=== PATIENT | female | born 1935 | race African-American/Black ===

== ENCOUNTER 2018-04-13 04:43 | Inpatient (IN) ==
[2018-04-13] MEDS ORDERED: SODIUM CHLORIDE 0.9% 500 ML IV STA (05:03)
[2018-04-13] MEDS ORDERED: FUROSEMIDE 40 MG/4 ML VIAL IV STA (05:13)
[2018-04-13 05:27] LABS: Albumin 2.5 G/DL (3.4-5.0); Calcium 8.7 MG/DL (8.5-10.1); Osmolality,Calculated 283.7 MOS/KG (273-304); Potassium 3.5 MMOL/L (3.5-5.1); Total Protein 8.4 G/DL (6.4-8.3)
[2018-04-13 05:40] LABS: Basophils # 0.1 10*3/uL (0.0-0.2); Basophils % 0.5 % (0.0-0.8); Eosinophils # 0.2 10*3/uL (0.0-0.87); Eosinophils % 2.2 % (0.00-10.9); Hematocrit 36.3 VOL% (35.7-47.0); Hemoglobin 11.9 GM/DL (12.0-16.0); Immature Granulocytes % 0.8 %; Immature Granulocytes Absolute 0.08 #; Lymphocytes # 0.9 10*3/uL (1.4-4.0); Lymphocytes % 9.6 % (21.3-54.2); Mean Corpuscular HGB Conc 32.8 GM/DL (32-36); Mean Corpuscular Hemoglobin 30 PG (27-34); Mean Corpuscular Volume 90.3 FL (87-102); Mean Platelet Volume 9.8 FL (9.6-12.0); Monocytes % 10.8 % (1.7-12.7); Neutrophils # 7.2 10*3/uL (1.4-7.4); Neutrophils % 76.1 % (38.7-73.9); Platelet Count 332 T/CUMM (130-400); Red Blood Count 4.02 MC/CUMM (3.8-5.5); Red Cell Distribution Width 13.6 % (9.3-17.3); White Blood Count 9.5 T/CUMM (4-12)
[2018-04-13 05:42] LABS: INR 1.1; PT Patient Result 11.2 SECS
[2018-04-13 05:48] LABS: Allen Test Positive
[2018-04-13 05:49] LABS: ABG Base Excess -3.1 MMOL/L (-2.5-2.5); ABG HCO3 17.8 MMOL/L (20-26); ABG Oxygen Saturation 90.6 % (95-100); ABG PCO2 21.8 MM HG (35-48); ABG PH 7.531 (7.35-7.45); ABG PO2 60.5 MM HG (80-95); ABG TCO2 18.5 MMOL/L (23-27)
[2018-04-13] MEDS ORDERED: AMIODARONE INJ 150 MG in DEXTROSE 5% 100 ML IV ONE ×2 (05:56→07:25)
[2018-04-13] MEDS ORDERED: AMIODARONE 150 MG/3 ML VIAL ONE (05:56)
[2018-04-13] MEDS ORDERED: AMIODARONE 450 MG/9 ML VIAL IV ONE (06:11)
[2018-04-13] MEDS: AMIODARONE INJ 450 MG in DEXTROSE 5% 241 ML IV SCH (06:17)
[2018-04-13 07:18] LABS: Apearance,Urine Slightly Hazy (Clear); Bacteria,Urine Occasional /HPF (Few); Bilirubin,Urine Negative (Negative); Blood, Urine Moderate mg/dL (Negative); Glucose,Urine (UA) Negative (Negative); Hyaline Casts,Urine 16 /LPF (0-3); Ketones,Urine Negative (Negative); Mucus,Urine Few /LPF (Occasional); Nitrite,Urine Negative (Negative); Protein,Urine Negative; RBC,Urine 10 /HPF (0-4); Squamous Epithelial Cell,Urine Occasional /HPF (0-10); Urine Color Yellow (Yellow); Urine Specific Gravity 1.008 (1.001-1.035); WBC,Urine 1 /HPF (0-6)
[2018-04-13] MEDS ORDERED: traZODone 50 MG TABLET PO PRN (08:27)
[2018-04-13] MEDS ORDERED: MAGNESIUM HYDROXIDE SUSP 30 ML UDCUP PO PRN (08:28)
[2018-04-13] MEDS ORDERED: ETOMIDATE 20 MG/10 ML VIAL IV ONE (08:38)
[2018-04-13] MEDS ORDERED: ROCURONIUM 100 MG/10 ML VIAL IV ONE (08:38)
[2018-04-13] MEDS ORDERED: ROSUVASTATIN 10 MG TABLET PO SCH (09:00)
[2018-04-13] MEDS ORDERED: AMIODARONE 200 MG TABLET PO SCH (09:00)
[2018-04-13] MEDS ORDERED: CARVEDILOL 12.5 MG TABLET PO SCH (09:00)
[2018-04-13] MEDS ORDERED: POTASSIUM CHLORIDE RIDER 10 MEQ in PREMIX 1 EACH IV ONE (09:11)
[2018-04-13 09:12] LABS: ABG Base Excess -5.1 MMOL/L (-2.5-2.5); ABG HCO3 20.2 MMOL/L (20-26); ABG Oxygen Saturation 94.9 % (95-100); ABG PCO2 34.2 MM HG (35-48); ABG PH 7.365 (7.35-7.45); ABG PO2 86.1 MM HG (80-95); ABG TCO2 17.4 MMOL/L (23-27)
[2018-04-13] MEDS ORDERED: MAGNESIUM SULF RIDER 2 GM in PREMIX 1 EACH IV STA (09:12)
[2018-04-13] MEDS ORDERED: PROPOFOL 1,000 MG/100 ML BOTTLE IV ONE (09:28)
[2018-04-13] MEDS: LIDOCAINE DRIP 2,000 MG/250 ML PREMIX IV SCH (09:52)
[2018-04-13] MEDS: PROPOFOL 1,000 MG/100 ML BOTTLE IV SCH ×2 (12:30→20:00)
[2018-04-13] MEDS: NOREPINEPHRINE 8 MG in SODIUM CHLORIDE 0.9% 242 ML IV PRN (13:01)
[2018-04-13 14:16] LABS: Calcium 8.1 MG/DL (8.5-10.1); Osmolality,Calculated 281.8 MOS/KG (273-304); Potassium 3.9 MMOL/L (3.5-5.1)
[2018-04-13] MEDS: FUROSEMIDE 40 MG/4 ML VIAL IV SCH (16:27)
[2018-04-13] MEDS: ENOXAPARIN 40 MG/0.4 ML SYRINGE SUBCUT SCH (16:47)
[2018-04-14 03:21] LABS: ABG Base Excess -1.3 MMOL/L (-2.5-2.5); ABG HCO3 20.1 MMOL/L (20-26); ABG Oxygen Saturation 98.5 % (95-100); ABG PCO2 24.6 MM HG (35-48); ABG PO2 136.8 MM HG (80-95); ABG TCO2 20.8 MMOL/L (23-27); Allen Test Positive; Pt O2 Delivery Device Ventilator
[2018-04-14 04:06] LABS: Basophils # 0.1 10*3/uL (0.0-0.2); Basophils % 0.4 % (0.0-0.8); Eosinophils # 0.1 10*3/uL (0.0-0.87); Eosinophils % 0.9 % (0.00-10.9); Hematocrit 34.6 VOL% (35.7-47.0); Hemoglobin 11.6 GM/DL (12.0-16.0); Immature Granulocytes % 0.6 %; Immature Granulocytes Absolute 0.08 #; Lymphocytes # 1.5 10*3/uL (1.4-4.0); Lymphocytes % 11.3 % (21.3-54.2); Mean Corpuscular HGB Conc 33.5 GM/DL (32-36); Mean Corpuscular Hemoglobin 29 PG (27-34); Mean Corpuscular Volume 87.2 FL (87-102); Mean Platelet Volume 9.7 FL (9.6-12.0); Monocytes # 1.4 10*3/uL (0.11-0.8); Monocytes % 10.1 % (1.7-12.7); Neutrophils # 10.3 10*3/uL (1.4-7.4); Neutrophils % 76.7 % (38.7-73.9); Platelet Count 302 T/CUMM (130-400); Red Blood Count 3.97 MC/CUMM (3.8-5.5); Red Cell Distribution Width 13.8 % (9.3-17.3); White Blood Count 13.4 T/CUMM (4-12)
[2018-04-14 04:55] LABS: Troponin I 0.175 NG/ML (0.00-0.045)
[2018-04-14] MEDS: AMIODARONE INJ 450 MG in DEXTROSE 5% 241 ML IV SCH ×4 (05:08→12:32)
[2018-04-14 05:40] LABS: Calcium 8.2 MG/DL (8.5-10.1); Osmolality,Calculated 280.5 MOS/KG (273-304); Potassium 2.8 MMOL/L (3.5-5.1)
[2018-04-14 05:50] LABS: Albumin 2.3 G/DL (3.4-5.0); Bilirubin,Direct 0.57 MG/DL (0.0-0.20); Bilirubin,Indirect 0.8 MG/DL (0.0-1.0); Bilirubin,Total 1.4 MG/DL (0.2-1.0); Total Protein 7.7 G/DL (6.4-8.3)
[2018-04-14] MEDS: FUROSEMIDE 40 MG/4 ML VIAL IV SCH ×2 (08:08→16:32)
[2018-04-14] MEDS: ENOXAPARIN 40 MG/0.4 ML SYRINGE SUBCUT SCH (08:08)
[2018-04-14] MEDS: POTASSIUM CHLORIDE RIDER 10 MEQ in PREMIX 1 EACH IV PRN (08:09)
[2018-04-14] MEDS ORDERED: MAGNESIUM SULF RIDER 2 GM in PREMIX 1 EACH IV ONE (08:14)
[2018-04-14] MEDS: NOREPINEPHRINE 8 MG in SODIUM CHLORIDE 0.9% 242 ML IV PRN (09:11)
[2018-04-14] MEDS: POTASSIUM CHLORIDE 20 MEQ/15 ML UDCUP PER TUBE SCH ×4 (09:11→20:12)
[2018-04-14 09:40] LABS: Albumin (SPE) 3.2 G/DL (3.2-5.3); Albumin (SPE) Rel % 38.4 %; Alpha 1 (SPE) 0.4 G/DL (0.1-0.4); Alpha 1 (SPE) Rel % 5.1 %; Alpha 2 (SPE) 1.1 G/DL (0.4-1.0); Alpha 2 (SPE) Rel % 13.2 %; Beta (SPE) 0.8 G/DL (0.5-1.1); Beta (SPE) Rel % 9.8 %; Gamma (SPE) 2.8 G/DL (0.7-1.7); Gamma (SPE) Rel % 33.5 %; Total Protein (Chem) 8.4 G/DL (6.4-8.3)
[2018-04-14] MEDS: LIDOCAINE DRIP 2,000 MG/250 ML PREMIX IV SCH ×2 (11:07→19:26)
[2018-04-14] MEDS: PROPOFOL 1,000 MG/100 ML BOTTLE IV SCH (15:36)
[2018-04-14] MEDS ORDERED: ONDANSETRON 4 MG/2 ML VIAL IV PRN (19:36)
[2018-04-14] MEDS ORDERED: ONDANSETRON 4 MG/2 ML VIAL ONE (19:37)
[2018-04-14] MEDS: AMIODARONE 200 MG TABLET PO SCH (20:12)
[2018-04-14] MEDS: MEXILETINE 200 MG CAPSULE PO SCH (22:27)
[2018-04-15] MEDS: AMIODARONE INJ 450 MG in DEXTROSE 5% 241 ML IV SCH ×2 (03:13→04:02)
[2018-04-15 03:45] LABS: Allen Test Positive; Pt O2 Delivery Device Ventilator
[2018-04-15 03:47] LABS: ABG Base Excess -1.4 MMOL/L (-2.5-2.5); ABG HCO3 21.1 MMOL/L (20-26); ABG Oxygen Saturation 98.4 % (95-100); ABG PCO2 29.9 MM HG (35-48); ABG PH 7.467 (7.35-7.45); ABG PO2 113.2 MM HG (80-95)
[2018-04-15 05:52] LABS: Calcium 8.4 MG/DL (8.5-10.1); Osmolality,Calculated 281.7 MOS/KG (273-304); Potassium 3.9 MMOL/L (3.5-5.1)
[2018-04-15] MEDS: MEXILETINE 200 MG CAPSULE PO SCH ×3 (06:10→21:26)
[2018-04-15] MEDS: POTASSIUM CHLORIDE RIDER 10 MEQ in PREMIX 1 EACH IV PRN ×2 (06:17→07:17)
[2018-04-15 06:49] LABS: Basophils % 0.2 % (0.0-0.8); Eosinophils # 0.3 10*3/uL (0.0-0.87); Eosinophils % 1.8 % (0.00-10.9); Hematocrit 34.3 VOL% (35.7-47.0); Hemoglobin 11.3 GM/DL (12.0-16.0); Immature Granulocytes % 0.7 %; Immature Granulocytes Absolute 0.11 #; Lymphocytes # 1.2 10*3/uL (1.4-4.0); Lymphocytes % 7.9 % (21.3-54.2); Mean Corpuscular HGB Conc 32.9 GM/DL (32-36); Mean Corpuscular Hemoglobin 29 PG (27-34); Mean Corpuscular Volume 89.3 FL (87-102); Mean Platelet Volume 9.4 FL (9.6-12.0); Monocytes # 1.5 10*3/uL (0.11-0.8); Neutrophils # 12.1 10*3/uL (1.4-7.4); Neutrophils % 79.4 % (38.7-73.9); Platelet Count 281 T/CUMM (130-400); Red Blood Count 3.84 MC/CUMM (3.8-5.5); Red Cell Distribution Width 14.1 % (9.3-17.3); White Blood Count 15.2 T/CUMM (4-12)
[2018-04-15] MEDS: FUROSEMIDE 40 MG/4 ML VIAL IV SCH ×2 (07:47→16:08)
[2018-04-15] MEDS: AMIODARONE 200 MG TABLET PO SCH ×2 (08:00→21:26)
[2018-04-15] MEDS: ENOXAPARIN 40 MG/0.4 ML SYRINGE SUBCUT SCH (08:00)
[2018-04-15] MEDS: PROPOFOL 1,000 MG/100 ML BOTTLE IV SCH (11:26)
[2018-04-15] MEDS: LIDOCAINE DRIP 2,000 MG/250 ML PREMIX IV SCH (11:50)
[2018-04-15] MEDS: NOREPINEPHRINE 8 MG in SODIUM CHLORIDE 0.9% 242 ML IV PRN (13:37)
[2018-04-15] MEDS: MEROPENEM 1,000 MG in SYRINGE 1 EACH IV SCH (18:20)
[2018-04-15] MEDS: SODIUM CHLORIDE 0.9% 1,000 ML IV SCH (21:30)
[2018-04-16] MEDS: MEROPENEM 1,000 MG in SYRINGE 1 EACH IV SCH ×3 (01:35→18:30)
[2018-04-16 04:10] LABS: ABG Base Excess 1.1 MMOL/L (-2.5-2.5); ABG HCO3 23.9 MMOL/L (20-26); ABG Oxygen Saturation 97.6 % (95-100); ABG PH 7.491 (7.35-7.45); ABG TCO2 24.9 MMOL/L (23-27); Allen Test Positive; Pt O2 Delivery Device Ventilator
[2018-04-16 04:23] LABS: Basophils # 0.1 10*3/uL (0.0-0.2); Basophils % 0.3 % (0.0-0.8); Eosinophils # 0.3 10*3/uL (0.0-0.87); Eosinophils % 2.1 % (0.00-10.9); Hematocrit 35.5 VOL% (35.7-47.0); Hemoglobin 11.3 GM/DL (12.0-16.0); Immature Granulocytes % 0.9 %; Immature Granulocytes Absolute 0.15 #; Lymphocytes # 1.3 10*3/uL (1.4-4.0); Lymphocytes % 8.2 % (21.3-54.2); Mean Corpuscular HGB Conc 31.8 GM/DL (32-36); Mean Corpuscular Hemoglobin 29 PG (27-34); Mean Corpuscular Volume 91.5 FL (87-102); Mean Platelet Volume 9.8 FL (9.6-12.0); Monocytes # 1.6 10*3/uL (0.11-0.8); Monocytes % 10.2 % (1.7-12.7); Neutrophils # 12.4 10*3/uL (1.4-7.4); Neutrophils % 78.3 % (38.7-73.9); Platelet Count 279 T/CUMM (130-400); Red Blood Count 3.88 MC/CUMM (3.8-5.5); Red Cell Distribution Width 13.9 % (9.3-17.3); White Blood Count 15.8 T/CUMM (4-12)
[2018-04-16 04:47] LABS: Calcium 8.5 MG/DL (8.5-10.1); Osmolality,Calculated 281.5 MOS/KG (273-304)
[2018-04-16 04:58] LABS: Calcium 8.8 MG/DL (8.5-10.1); Osmolality,Calculated 280.7 MOS/KG (273-304); Potassium 3.9 MMOL/L (3.5-5.1)
[2018-04-16] MEDS: MEXILETINE 200 MG CAPSULE PO SCH ×3 (06:30→21:01)
[2018-04-16] MEDS: PROPOFOL 1,000 MG/100 ML BOTTLE IV SCH ×2 (07:02→12:14)
[2018-04-16 08:55] LABS: ABG HCO3 25.3 MMOL/L (20-26); ABG Oxygen Saturation 97.7 % (95-100); ABG PCO2 34.9 MM HG (35-48); ABG PH 7.455 (7.35-7.45); ABG TCO2 21.7 MMOL/L (23-27); Pt O2 Delivery Device Ventilator
[2018-04-16] MEDS: ENOXAPARIN 40 MG/0.4 ML SYRINGE SUBCUT SCH (08:56)
[2018-04-16] MEDS: AMIODARONE 200 MG TABLET PO SCH ×2 (08:56→21:01)
[2018-04-16] MEDS: FUROSEMIDE 40 MG/4 ML VIAL IV SCH ×2 (08:56→14:54)
[2018-04-16] MEDS ORDERED: VANCOMYCIN INJ 500 MG in SODIUM CHLORIDE 0.9% 100 ML IV ONE (09:00)
[2018-04-16] MEDS ORDERED: DIGOXIN 0.5 MG/2 ML AMP IV ONE (15:33)
[2018-04-16] MEDS ORDERED: AMIODARONE INJ 150 MG in DEXTROSE 5% 100 ML IV ONE (16:46)
[2018-04-16] MEDS: SODIUM CHLORIDE 0.9% 1,000 ML IV SCH (17:17)
[2018-04-17] MEDS: MEROPENEM 1,000 MG in SYRINGE 1 EACH IV SCH ×3 (02:48→17:32)
[2018-04-17 04:57] LABS: Basophils % 0.3 % (0.0-0.8); Eosinophils # 0.4 10*3/uL (0.0-0.87); Eosinophils % 3.7 % (0.00-10.9); Hematocrit 31.9 VOL% (35.7-47.0); Hemoglobin 10.6 GM/DL (12.0-16.0); Immature Granulocytes % 0.9 %; Immature Granulocytes Absolute 0.09 #; Lymphocytes # 1.2 10*3/uL (1.4-4.0); Lymphocytes % 11.1 % (21.3-54.2); Mean Corpuscular HGB Conc 33.2 GM/DL (32-36); Mean Corpuscular Hemoglobin 30 PG (27-34); Mean Corpuscular Volume 89.6 FL (87-102); Mean Platelet Volume 9.8 FL (9.6-12.0); Monocytes # 1.2 10*3/uL (0.11-0.8); Monocytes % 11.8 % (1.7-12.7); Neutrophils # 7.6 10*3/uL (1.4-7.4); Neutrophils % 72.2 % (38.7-73.9); Platelet Count 236 T/CUMM (130-400); Red Blood Count 3.56 MC/CUMM (3.8-5.5); Red Cell Distribution Width 13.9 % (9.3-17.3); White Blood Count 10.6 T/CUMM (4-12)
[2018-04-17 05:22] LABS: Calcium 8.7 MG/DL (8.5-10.1); Osmolality,Calculated 285.3 MOS/KG (273-304); Potassium 3.5 MMOL/L (3.5-5.1)
[2018-04-17] MEDS: MEXILETINE 200 MG CAPSULE PO SCH ×3 (05:37→22:55)
[2018-04-17] MEDS ORDERED: PHENOL 1.4% THROAT SPRAY 177 ML BOTTLE PO PRN (06:56)
[2018-04-17] MEDS: POTASSIUM CHLORIDE 10 MEQ TABLET PO SCH ×2 (09:37→20:34)
[2018-04-17] MEDS: FUROSEMIDE 40 MG/4 ML VIAL IV SCH ×2 (09:37→15:30)
[2018-04-17] MEDS: ENOXAPARIN 40 MG/0.4 ML SYRINGE SUBCUT SCH (09:37)
[2018-04-17] MEDS: AMIODARONE 200 MG TABLET PO SCH ×2 (09:38→20:34)
[2018-04-17] MEDS: PROPOFOL 1,000 MG/100 ML BOTTLE IV SCH (10:01)
[2018-04-17] MEDS: SODIUM CHLORIDE 0.9% 1,000 ML IV SCH ×2 (17:26→22:20)
[2018-04-18] MEDS ORDERED: ALUMINUM/MAGNES/SIMETH MAX STR 30 ML UDCUP PO PRN (00:38)
[2018-04-18] MEDS: MEROPENEM 1,000 MG in SYRINGE 1 EACH IV SCH ×3 (01:30→16:47)
[2018-04-18 04:19] LABS: Basophils % 0.4 % (0.0-0.8); Eosinophils # 0.4 10*3/uL (0.0-0.87); Eosinophils % 4.2 % (0.00-10.9); Hematocrit 31.5 VOL% (35.7-47.0); Hemoglobin 10.3 GM/DL (12.0-16.0); Immature Granulocytes % 1.2 %; Immature Granulocytes Absolute 0.13 #; Lymphocytes # 1.1 10*3/uL (1.4-4.0); Lymphocytes % 10.7 % (21.3-54.2); Mean Corpuscular HGB Conc 32.7 GM/DL (32-36); Mean Corpuscular Hemoglobin 29 PG (27-34); Mean Corpuscular Volume 89.7 FL (87-102); Mean Platelet Volume 9.8 FL (9.6-12.0); Monocytes # 1.1 10*3/uL (0.11-0.8); Monocytes % 10.8 % (1.7-12.7); Neutrophils # 7.6 10*3/uL (1.4-7.4); Neutrophils % 72.7 % (38.7-73.9); Platelet Count 234 T/CUMM (130-400); Red Blood Count 3.51 MC/CUMM (3.8-5.5); Red Cell Distribution Width 14.1 % (9.3-17.3); White Blood Count 10.4 T/CUMM (4-12)
[2018-04-18 05:00] LABS: Bilirubin,Direct 0.3 MG/DL (0.0-0.20); Bilirubin,Indirect 0.4 MG/DL (0.0-1.0); Bilirubin,Total 0.7 MG/DL (0.2-1.0); Calcium 8.6 MG/DL (8.5-10.1); Osmolality,Calculated 282.5 MOS/KG (273-304); Potassium 3.7 MMOL/L (3.5-5.1); Total Protein 7.2 G/DL (6.4-8.3)
[2018-04-18] MEDS: MEXILETINE 200 MG CAPSULE PO SCH ×3 (06:50→21:54)
[2018-04-18] MEDS: FUROSEMIDE 40 MG/4 ML VIAL IV SCH ×2 (08:13→16:43)
[2018-04-18] MEDS: ENOXAPARIN 40 MG/0.4 ML SYRINGE SUBCUT SCH (08:13)
[2018-04-18] MEDS: POTASSIUM CHLORIDE 10 MEQ TABLET PO SCH ×2 (08:30→20:38)
[2018-04-18] MEDS: AMIODARONE 200 MG TABLET PO SCH ×2 (08:31→20:38)
[2018-04-18] MEDS: SODIUM CHLORIDE 0.9% 1,000 ML IV SCH (18:28)
[2018-04-19] MEDS: MEROPENEM 1,000 MG in SYRINGE 1 EACH IV SCH ×4 (00:59→16:57)
[2018-04-19] MEDS: MEXILETINE 200 MG CAPSULE PO SCH ×3 (05:46→22:08)
[2018-04-19 06:36] LABS: Basophils # 0.1 10*3/uL (0.0-0.2); Basophils % 0.4 % (0.0-0.8); Eosinophils # 0.4 10*3/uL (0.0-0.87); Eosinophils % 3.2 % (0.00-10.9); Hematocrit 32.4 VOL% (35.7-47.0); Hemoglobin 10.4 GM/DL (12.0-16.0); Immature Granulocytes % 2.1 %; Immature Granulocytes Absolute 0.25 #; Lymphocytes # 1.3 10*3/uL (1.4-4.0); Lymphocytes % 10.8 % (21.3-54.2); Mean Corpuscular HGB Conc 32.1 GM/DL (32-36); Mean Corpuscular Hemoglobin 30 PG (27-34); Mean Corpuscular Volume 92.3 FL (87-102); Monocytes # 1.4 10*3/uL (0.11-0.8); Monocytes % 11.3 % (1.7-12.7); Neutrophils # 8.7 10*3/uL (1.4-7.4); Neutrophils % 72.2 % (38.7-73.9); Platelet Count 264 T/CUMM (130-400); Red Blood Count 3.51 MC/CUMM (3.8-5.5)
[2018-04-19 06:46] LABS: Calcium 8.8 MG/DL (8.5-10.1); Osmolality,Calculated 279.7 MOS/KG (273-304); Potassium 3.8 MMOL/L (3.5-5.1)
[2018-04-19] MEDS: FUROSEMIDE 40 MG/4 ML VIAL IV SCH ×3 (08:04→17:37)
[2018-04-19] MEDS: ENOXAPARIN 40 MG/0.4 ML SYRINGE SUBCUT SCH (08:43)
[2018-04-19] MEDS: POTASSIUM CHLORIDE 10 MEQ TABLET PO SCH ×2 (08:43→20:32)
[2018-04-19] MEDS: AMIODARONE 200 MG TABLET PO SCH ×2 (08:43→20:32)
[2018-04-19] MEDS: SODIUM CHLORIDE 0.9% 1,000 ML IV SCH (17:03)
[2018-04-20] MEDS: MEROPENEM 1,000 MG in SYRINGE 1 EACH IV SCH ×3 (01:06→16:39)
[2018-04-20] MEDS: MEXILETINE 200 MG CAPSULE PO SCH ×3 (05:07→22:31)
[2018-04-20 06:05] LABS: Basophils % 0.3 % (0.0-0.8); Eosinophils # 0.4 10*3/uL (0.0-0.87); Eosinophils % 2.8 % (0.00-10.9); Hematocrit 33.2 VOL% (35.7-47.0); Hemoglobin 10.6 GM/DL (12.0-16.0); Immature Granulocytes % 2.2 %; Immature Granulocytes Absolute 0.29 #; Lymphocytes # 1.4 10*3/uL (1.4-4.0); Lymphocytes % 10.7 % (21.3-54.2); Mean Corpuscular HGB Conc 31.9 GM/DL (32-36); Mean Corpuscular Hemoglobin 29 PG (27-34); Mean Corpuscular Volume 92.2 FL (87-102); Mean Platelet Volume 10.1 FL (9.6-12.0); Monocytes # 1.6 10*3/uL (0.11-0.8); Monocytes % 12.1 % (1.7-12.7); Neutrophils # 9.4 10*3/uL (1.4-7.4); Neutrophils % 71.9 % (38.7-73.9); Platelet Count 268 T/CUMM (130-400)
[2018-04-20 06:36] LABS: Calcium 8.7 MG/DL (8.5-10.1); Potassium 4.1 MMOL/L (3.5-5.1)
[2018-04-20] MEDS: POTASSIUM CHLORIDE 10 MEQ TABLET PO SCH ×2 (08:48→20:47)
[2018-04-20] MEDS: FUROSEMIDE 40 MG/4 ML VIAL IV SCH ×2 (08:48→15:35)
[2018-04-20] MEDS: AMIODARONE 200 MG TABLET PO SCH ×2 (08:48→20:47)
[2018-04-20] MEDS: ENOXAPARIN 40 MG/0.4 ML SYRINGE SUBCUT SCH (08:48)
[2018-04-20] MEDS: SODIUM CHLORIDE 0.9% 1,000 ML IV SCH (16:59)
[2018-04-20] MEDS ORDERED: VANCOMYCIN 500 MG VIAL IRRIG ONE (19:00)
[2018-04-21] MEDS: MEROPENEM 1,000 MG in SYRINGE 1 EACH IV SCH ×4 (01:18→16:45)
[2018-04-21 05:31] LABS: Basophils # 0.1 10*3/uL (0.0-0.2); Basophils % 0.5 % (0.0-0.8); Eosinophils # 0.3 10*3/uL (0.0-0.87); Eosinophils % 2.8 % (0.00-10.9); Hematocrit 34.6 VOL% (35.7-47.0); Hemoglobin 11.1 GM/DL (12.0-16.0); Immature Granulocytes % 2.3 %; Immature Granulocytes Absolute 0.25 #; Lymphocytes # 1.4 10*3/uL (1.4-4.0); Lymphocytes % 12.7 % (21.3-54.2); Mean Corpuscular HGB Conc 32.1 GM/DL (32-36); Mean Corpuscular Hemoglobin 29 PG (27-34); Mean Corpuscular Volume 91.5 FL (87-102); Mean Platelet Volume 9.9 FL (9.6-12.0); Monocytes # 1.3 10*3/uL (0.11-0.8); Monocytes % 11.6 % (1.7-12.7); Neutrophils # 7.7 10*3/uL (1.4-7.4); Neutrophils % 70.1 % (38.7-73.9); Platelet Count 283 T/CUMM (130-400); Red Blood Count 3.78 MC/CUMM (3.8-5.5); Red Cell Distribution Width 14.3 % (9.3-17.3)
[2018-04-21 05:41] LABS: Calcium 8.5 MG/DL (8.5-10.1); Potassium 4.1 MMOL/L (3.5-5.1)
[2018-04-21] MEDS ORDERED: VANCOMYCIN 500 MG VIAL IRRIG ONE (06:00)
[2018-04-21] MEDS ORDERED: VANCOMYCIN INJ 1,000 MG in SODIUM CHLORIDE 0.9% 250 ML IV ONE ×2 (06:00→11:00)
[2018-04-21] MEDS: MEXILETINE 200 MG CAPSULE PO SCH ×3 (08:59→21:34)
[2018-04-21] MEDS: ENOXAPARIN 40 MG/0.4 ML SYRINGE SUBCUT SCH (09:06)
[2018-04-21] MEDS: FUROSEMIDE 40 MG/4 ML VIAL IV SCH ×2 (09:07→16:11)
[2018-04-21] MEDS ORDERED: VANCOMYCIN 500 MG VIAL ONE ×2 (12:51→12:58)
[2018-04-21] MEDS ORDERED: HEPARIN/NACL 0.9% 2 UNITS/ML 500 ML IV ONE (12:58)
[2018-04-21] MEDS ORDERED: LIDOCAINE 1% 20 ML VIAL ONE (12:59)
[2018-04-21] MEDS ORDERED: TISSUE ADHESIVE 1 EACH APPLICATOR TOP ONE (14:44)
[2018-04-21] MEDS ORDERED: ACETAMINOPHEN 325 MG TABLET PO PRN (15:03)
[2018-04-21] MEDS ORDERED: SEVOFLURANE 1 UNIT/15 MINUTE INH ONE (15:24)
[2018-04-21] MEDS ORDERED: FUROSEMIDE 20 MG/2 ML VIAL ONE (15:24)
[2018-04-21] MEDS ORDERED: PROPOFOL 500 MG/50 ML BOTTLE IV ONE (15:24)
[2018-04-21] MEDS ORDERED: PHENYLEPHRINE 1 MG/10 ML SYRINGE IV ONE (15:24)
[2018-04-21] MEDS ORDERED: ETOMIDATE 40 MG/20 ML VIAL IV ONE (15:24)
[2018-04-21] MEDS: POTASSIUM CHLORIDE 10 MEQ TABLET PO SCH ×2 (16:10→21:35)
[2018-04-21] MEDS: AMIODARONE 200 MG TABLET PO SCH ×2 (16:10→21:35)
[2018-04-21] MEDS: SODIUM CHLORIDE 0.9% 1,000 ML IV SCH (16:12)
[2018-04-22] MEDS: MEROPENEM 1,000 MG in SYRINGE 1 EACH IV SCH ×3 (01:30→16:46)
[2018-04-22] MEDS ORDERED: VANCOMYCIN INJ 1,000 MG in SODIUM CHLORIDE 0.9% 250 ML IV ONE (03:00)
[2018-04-22 04:39] LABS: Basophils % 0.4 % (0.0-0.8); Eosinophils # 0.4 10*3/uL (0.0-0.87); Eosinophils % 3.8 % (0.00-10.9); Hematocrit 33.7 VOL% (35.7-47.0); Immature Granulocytes % 1.9 %; Immature Granulocytes Absolute 0.18 #; Lymphocytes % 10.3 % (21.3-54.2); Mean Corpuscular HGB Conc 32.6 GM/DL (32-36); Mean Corpuscular Hemoglobin 29 PG (27-34); Mean Corpuscular Volume 89.9 FL (87-102); Mean Platelet Volume 10.5 FL (9.6-12.0); Monocytes # 1.2 10*3/uL (0.11-0.8); Monocytes % 12.4 % (1.7-12.7); Neutrophils # 6.9 10*3/uL (1.4-7.4); Neutrophils % 71.2 % (38.7-73.9); Platelet Count 221 T/CUMM (130-400); Red Blood Count 3.75 MC/CUMM (3.8-5.5); Red Cell Distribution Width 14.6 % (9.3-17.3); White Blood Count 9.7 T/CUMM (4-12)
[2018-04-22 04:56] LABS: Calcium 8.2 MG/DL (8.5-10.1); Osmolality,Calculated 272.1 MOS/KG (273-304)
[2018-04-22] MEDS: MEXILETINE 200 MG CAPSULE PO SCH (07:11)
[2018-04-22] MEDS: CARVEDILOL 3.125 MG TABLET PO SCH ×2 (08:44→21:59)
[2018-04-22] MEDS: POTASSIUM CHLORIDE 10 MEQ TABLET PO SCH ×2 (08:44→22:00)
[2018-04-22] MEDS: LISINOPRIL 2.5 MG TABLET PO SCH (08:44)
[2018-04-22] MEDS: AMIODARONE 200 MG TABLET PO SCH (08:45)
[2018-04-22] MEDS: FUROSEMIDE 40 MG/4 ML VIAL IV SCH (08:45)
[2018-04-22] MEDS: FUROSEMIDE 40 MG TABLET PO SCH (16:46)
[2018-04-23] MEDS: MEROPENEM 1,000 MG in SYRINGE 1 EACH IV SCH ×2 (03:11→09:28)
[2018-04-23] MEDS: POTASSIUM CHLORIDE 10 MEQ TABLET PO SCH (08:43)
[2018-04-23] MEDS: AMIODARONE 200 MG TABLET PO SCH (08:44)
[2018-04-23] MEDS: CARVEDILOL 3.125 MG TABLET PO SCH (08:44)
[2018-04-23] MEDS: FUROSEMIDE 40 MG TABLET PO SCH ×2 (08:44→16:16)
[2018-04-23] MEDS: LISINOPRIL 2.5 MG TABLET PO SCH (08:44)
[2018-04-23 11:36] VITALS: BP 92/52
== END 2018-04-23 14:10 | disposition swing bed (61) | DRG 226 ==
LOC: EDBD → EDUNIT# → N.ED 04:43 → SUATTDRO 06:25 → N.EDINP 06:25 → N.ICU 09:02 → N.TELEN 04-18 09:45 → N.2E 04-23 14:32
PROVIDERS: ADMIT Internal Medicine; ATTEND Internal Medicine Geriatric Medicine

== ENCOUNTER 2018-05-30 19:34 | Inpatient (IN) ==
[2018-05-30] MEDS ORDERED: AMIODARONE 150 MG/3 ML VIAL ONE (20:35)
[2018-05-30] MEDS ORDERED: AMIODARONE INJ 150 MG in DEXTROSE 5% 100 ML IV ONE (20:37)
[2018-05-30 20:45] LABS: Albumin 2.8 G/DL (3.4-5.0); Bilirubin,Total 0.9 MG/DL (0.2-1.0); Calcium 8.2 MG/DL (8.5-10.1); Osmolality,Calculated 284.5 MOS/KG (273-304); Potassium 4.1 MMOL/L (3.5-5.1); Total Protein 7.8 G/DL (6.4-8.3)
[2018-05-30] MEDS ORDERED: MAGNESIUM SULF RIDER 4 GM in PREMIX 1 EACH IV PRN (20:45)
[2018-05-30] MEDS ORDERED: PROPRANOLOL 20 MG TABLET PO STA (20:45)
[2018-05-30] MEDS ORDERED: ONDANSETRON 4 MG/2 ML VIAL IV PRN (20:45)
[2018-05-30] MEDS ORDERED: ACETAMINOPHEN 325 MG TABLET PO PRN (20:45)
[2018-05-30 20:54] LABS: Apearance,Urine CLEAR (Clear); Bacteria,Urine Occasional /HPF (Few); Bilirubin,Urine Negative (Negative); Blood, Urine Negative (Negative); Glucose,Urine (UA) Negative (Negative); Hyaline Casts,Urine 12 /LPF (0-3); Ketones,Urine Negative (Negative); Mucus,Urine Occasional /LPF (Occasional); Nitrite,Urine Negative (Negative); Protein,Urine Negative; RBC,Urine <1 /HPF (0-4); Squamous Epithelial Cell,Urine Occasional /HPF (0-10); Urine Color Yellow (Yellow); Urine Specific Gravity 1.013 (1.001-1.035); Urine Urobilinogen < 2.0 EU/DL (0.2-1.0); WBC,Urine 2 /HPF (0-6)
[2018-05-30] MEDS ORDERED: AMIODARONE INJ 450 MG in DEXTROSE 5% 241 ML IV SCH (21:00)
[2018-05-30 21:03] LABS: Basophils % 0.4 % (0.0-0.8); Eosinophils # 0.2 10*3/uL (0.0-0.87); Eosinophils % 1.9 % (0.00-10.9); Hemoglobin 11.6 GM/DL (12.0-16.0); Immature Granulocytes % 0.4 %; Immature Granulocytes Absolute 0.03 #; Lymphocytes # 2.3 10*3/uL (1.4-4.0); Lymphocytes % 26.8 % (21.3-54.2); Mean Corpuscular HGB Conc 31.4 GM/DL (32-36); Mean Corpuscular Hemoglobin 30 PG (27-34); Mean Corpuscular Volume 94.1 FL (87-102); Mean Platelet Volume 10.5 FL (9.6-12.0); Monocytes # 0.9 10*3/uL (0.11-0.8); Neutrophils % 59.5 % (38.7-73.9); Platelet Count 165 T/CUMM (130-400); Red Blood Count 3.93 MC/CUMM (3.8-5.5); Red Cell Distribution Width 16.1 % (9.3-17.3); White Blood Count 8.4 T/CUMM (4-12)
[2018-05-30] MEDS ORDERED: LIDOCAINE 100 MG/5 ML SYRINGE IV ONE (22:00)
[2018-05-30] MEDS: LIDOCAINE DRIP 2,000 MG/250 ML PREMIX IV SCH (22:10)
[2018-05-30] MEDS ORDERED: ALBUTEROL/IPRATROPIUM 3 ML NEB RESP TX PRN (22:46)
[2018-05-30] MEDS ORDERED: ERGOCALCIFEROL 50,000 UNIT CAPSULE PO SCH (23:00)
[2018-05-30] MEDS: MAGNESIUM SULF RIDER 2 GM in PREMIX 1 EACH IV PRN (23:11)
[2018-05-31] MEDS ORDERED: SODIUM CHLORIDE 0.9% 250 ML IV ONE (01:13)
[2018-05-31] MEDS: PROPRANOLOL 20 MG TABLET PO SCH ×4 (02:08→20:35)
[2018-05-31] MEDS: AMIODARONE INJ 450 MG in DEXTROSE 5% 241 ML IV SCH ×2 (03:37→18:35)
[2018-05-31] MEDS: PHENYLEPHRINE DRIP 40 MG/250 ML PREMIX IV PRN (04:19)
[2018-05-31] MEDS ORDERED: AMIODARONE 200 MG TABLET PO SCH (09:00)
[2018-05-31] MEDS: FUROSEMIDE 40 MG TABLET PO SCH ×2 (09:00→17:33)
[2018-05-31 09:54] LABS: Basophils % 0.4 % (0.0-0.8); Eosinophils # 0.2 10*3/uL (0.0-0.87); Eosinophils % 2.7 % (0.00-10.9); Hematocrit 30.9 VOL% (35.7-47.0); Immature Granulocytes % 0.4 %; Immature Granulocytes Absolute 0.03 #; Lymphocytes # 1.9 10*3/uL (1.4-4.0); Lymphocytes % 28.4 % (21.3-54.2); Mean Corpuscular HGB Conc 32.4 GM/DL (32-36); Mean Corpuscular Hemoglobin 31 PG (27-34); Mean Corpuscular Volume 94.8 FL (87-102); Mean Platelet Volume 10.9 FL (9.6-12.0); Monocytes # 0.8 10*3/uL (0.11-0.8); Monocytes % 11.2 % (1.7-12.7); Neutrophils # 3.8 10*3/uL (1.4-7.4); Neutrophils % 56.9 % (38.7-73.9); Platelet Count 154 T/CUMM (130-400); Red Blood Count 3.26 MC/CUMM (3.8-5.5); Red Cell Distribution Width 16.1 % (9.3-17.3); White Blood Count 6.7 T/CUMM (4-12)
[2018-05-31] MEDS: CAPTOPRIL 6.25 MG TABLET PO SCH ×2 (10:00→20:34)
[2018-05-31 10:08] LABS: Calcium 8.1 MG/DL (8.5-10.1); Osmolality,Calculated 282.7 MOS/KG (273-304); Potassium 3.5 MMOL/L (3.5-5.1)
[2018-05-31] MEDS: POTASSIUM CHLORIDE 20 MEQ TABLET PO SCH (10:17)
[2018-05-31] MEDS ORDERED: POTASSIUM CHLORIDE 20 MEQ TABLET PO ONE (11:55)
[2018-05-31] MEDS: AMIODARONE 200 MG TABLET PO SCH ×2 (12:00→20:34)
[2018-05-31] MEDS: ROSUVASTATIN 10 MG TABLET PO SCH (20:34)
[2018-05-31] MEDS ORDERED: SODIUM CHLORIDE 0.9% 300 ML IV ONE (22:00)
[2018-06-01] MEDS: PROPRANOLOL 20 MG TABLET PO SCH ×5 (03:19→20:35)
[2018-06-01] MEDS: LIDOCAINE DRIP 2,000 MG/250 ML PREMIX IV SCH ×2 (03:19→07:08)
[2018-06-01] MEDS: CAPTOPRIL 6.25 MG TABLET PO SCH (08:36)
[2018-06-01] MEDS: PHENYLEPHRINE DRIP 40 MG/250 ML PREMIX IV PRN (08:51)
[2018-06-01 08:55] LABS: Basophils % 0.3 % (0.0-0.8); Eosinophils # 0.3 10*3/uL (0.0-0.87); Hematocrit 33.6 VOL% (35.7-47.0); Hemoglobin 10.4 GM/DL (12.0-16.0); Immature Granulocytes % 0.4 %; Immature Granulocytes Absolute 0.04 #; Lymphocytes # 1.7 10*3/uL (1.4-4.0); Lymphocytes % 17.9 % (21.3-54.2); Mean Corpuscular Hemoglobin 30 PG (27-34); Mean Corpuscular Volume 95.5 FL (87-102); Mean Platelet Volume 10.3 FL (9.6-12.0); Monocytes # 0.7 10*3/uL (0.11-0.8); Monocytes % 7.4 % (1.7-12.7); Neutrophils # 6.6 10*3/uL (1.4-7.4); Platelet Count 141 T/CUMM (130-400); Red Blood Count 3.52 MC/CUMM (3.8-5.5); Red Cell Distribution Width 16.4 % (9.3-17.3); White Blood Count 9.3 T/CUMM (4-12)
[2018-06-01] MEDS: AMIODARONE 200 MG TABLET PO SCH ×2 (08:57→20:41)
[2018-06-01 09:08] LABS: Calcium 8.1 MG/DL (8.5-10.1); Osmolality,Calculated 276.8 MOS/KG (273-304); Potassium 3.9 MMOL/L (3.5-5.1)
[2018-06-01] MEDS: POTASSIUM CHLORIDE 20 MEQ TABLET PO SCH (09:47)
[2018-06-01] MEDS: MAGNESIUM SULF RIDER 2 GM in PREMIX 1 EACH IV PRN (10:16)
[2018-06-01] MEDS: FUROSEMIDE 40 MG TABLET PO SCH (11:00)
[2018-06-01] MEDS: AMIODARONE INJ 450 MG in DEXTROSE 5% 241 ML IV SCH (11:31)
[2018-06-01] MEDS: MIDODRINE 5 MG TABLET PO SCH ×3 (14:37→20:26)
[2018-06-01] MEDS: MAGNESIUM CHLORIDE 64 MG TABLET PO SCH ×2 (14:37→20:42)
[2018-06-01] MEDS: ROSUVASTATIN 10 MG TABLET PO SCH (20:42)
[2018-06-01] MEDS ORDERED: MEXILETINE 150 MG CAPSULE PO SCH (21:30)
[2018-06-01] MEDS ORDERED: SODIUM CHLORIDE 0.9% 1,000 ML IV SCH (23:00)
[2018-06-01 23:29] LABS: Basophils % 0.3 % (0.0-0.8); Eosinophils # 0.2 10*3/uL (0.0-0.87); Eosinophils % 2.1 % (0.00-10.9); Hematocrit 32.5 VOL% (35.7-47.0); Hemoglobin 10.4 GM/DL (12.0-16.0); Immature Granulocytes % 0.7 %; Immature Granulocytes Absolute 0.07 #; Lymphocytes # 2.2 10*3/uL (1.4-4.0); Lymphocytes % 21.5 % (21.3-54.2); Mean Corpuscular Hemoglobin 30 PG (27-34); Mean Corpuscular Volume 94.2 FL (87-102); Monocytes % 9.3 % (1.7-12.7); Neutrophils # 6.9 10*3/uL (1.4-7.4); Neutrophils % 66.1 % (38.7-73.9); Platelet Count 157 T/CUMM (130-400); Red Blood Count 3.45 MC/CUMM (3.8-5.5); Red Cell Distribution Width 16.2 % (9.3-17.3); White Blood Count 10.4 T/CUMM (4-12)
[2018-06-01 23:50] LABS: Albumin 2.6 G/DL (3.4-5.0); Bilirubin,Total 0.8 MG/DL (0.2-1.0); Osmolality,Calculated 271.2 MOS/KG (273-304); Potassium 4.3 MMOL/L (3.5-5.1); Total Protein 7.6 G/DL (6.4-8.3)
[2018-06-01 23:53] LABS: PT Patient Result 10.9 SECS
[2018-06-02] MEDS: LIDOCAINE DRIP 2,000 MG/250 ML PREMIX IV SCH (01:40)
[2018-06-02] MEDS: AMIODARONE INJ 450 MG in DEXTROSE 5% 241 ML IV SCH (01:41)
[2018-06-02 01:54] VITALS: BP 110/53
== END 2018-06-02 01:26 | disposition hospice, home (50) | DRG 308 ==
LOC: EDUNIT# → N.ED 19:34 → N.EDINP 20:45 → N.CC 21:20
PROVIDERS: ADMIT Internal Medicine Cardiovascular Disease; ATTEND Internal Medicine Cardiovascular Disease